=== PATIENT | female | born 1940 | race Caucasian/White ===

== ENCOUNTER 2025-01-01 11:59 | Inpatient (IN) ==
[2025-01-01] MEDS: HYDROmorphone 0.5 MG/0.5 ML SYRINGE IV PRN ×2 (12:25→19:56)
[2025-01-01] MEDS: ONDANSETRON 4 MG/2 ML VIAL IV ONE (12:25)
[2025-01-01 13:21] LABS: Basophils # (Auto) 0.07 K/mcL (0.00-0.30); Basophils % (Auto) 0.9 % (0.0-2.0); Eosinophils # (Auto) 0.23 K/mcL (0.00-0.70); Eosinophils % (Auto) 3.0 % (0.0-7.0); Hematocrit 34.3 % (34.1-44.9); Hemoglobin 11.5 g/dL (11.2-15.7); Lymphocytes # (Auto) 1.80 K/mcL (1.50-4.80); Lymphocytes % (Auto) 23.6 % (15.5-49.0); Mean Corpuscular HGB Conc 33.5 g/dL (31.0-36.0); Monocytes # (Auto) 0.90 K/mcL (0.10-0.90); Monocytes % (Auto) 11.8 % (1.0-12.0); Neutrophils % (Auto) 60.3 % (38.0-78.0); Platelet Count 375 K/mcL (140-440); RBC 3.65 M/mcL (3.59-5.38); WBC 7.6 K/mcL (4.5-11.0)
[2025-01-01 13:47] LABS: ALT/SGPT 13 U/L (<40); AST/SGOT 18 U/L (<32); Albumin 3.6 gm/dL (3.2-5.2); Albumin/Globulin Ratio 1.5 (1.0-2.3); Alkaline Phosphatase 86 U/L (39-117); Anion Gap 7.0 (8.0-16.0); Bilirubin,Total 0.3 mg/dL (0.1-1.0); Blood Urea Nitrogen 11 mg/dL (8-23); Calcium 8.9 mg/dL (8.6-10.4); Carbon Dioxide 28 mmol/L (22-30); Chloride 101 mmol/L (96-108); Globulin 2.4 gm/dL (2.2-3.7); Glucose 87 mg/dL (70-105); Potassium 4.0 mmol/L (3.3-5.1); Sodium 136 mmol/L (133-145)
[2025-01-01 14:19] LABS: INR 0.9 (0.9-1.1); Prothrombin Time 13.3 sec (11.9-14.5)
[2025-01-01] MEDS: ACETAMINOPHEN 1,000 MG/100 ML BAG IV PRN (15:46)
[2025-01-01] MEDS ORDERED: LIDOCAINE 2% PF 5 ML VIAL ONE (15:57)
[2025-01-01] MEDS ORDERED: FAMOTIDINE/PF 20 MG/2 ML VIAL IV ONE (15:57)
[2025-01-01] MEDS ORDERED: PROPOFOL 200 MG/20 ML VIAL IV ONE (15:57)
[2025-01-01] MEDS ORDERED: ACETAMINOPHEN 325 MG TABLET PO PRN (16:19)
[2025-01-01] MEDS: LACTATED RINGERS 1,000 ML IV SCH ×2 (17:35→19:43)
[2025-01-01] MEDS: 0.9 % SODIUM CHLORIDE 10 ML SYRINGE IV SCH (17:36)
[2025-01-01] MEDS ORDERED: ceFAZolin 2 GM in DEXTROSE 5% IN WATER 50 ML IV SCH (18:15)
[2025-01-01] MEDS: CLINDAMYCIN IN 0.9 % SOD CHLOR 900 MG/50 ML BAG IV SCH (18:23)
[2025-01-01] MEDS ORDERED: BUPIVACAINE LIPOSOMAL 1.3% 10 ML VIAL IJ ONE (18:45)
[2025-01-01] MEDS ORDERED: BUPIVACAINE PF 0.5% 10 ML VIAL ONE (18:46)
[2025-01-01] MEDS ORDERED: fentaNYL 100 MCG/2 ML VIAL IV PRN (18:56)
[2025-01-01] MEDS ORDERED: HYDROmorphone 0.5 MG/0.5 ML SYRINGE IV PRN (18:56)
[2025-01-01] MEDS ORDERED: IPRATROPIUM/ALBUTEROL 3 ML AMPUL.NEB NEB PRN (18:56)
[2025-01-01] MEDS ORDERED: ONDANSETRON 4 MG ODT TABLET SL PRN (19:01)
[2025-01-01] MEDS ORDERED: FLEETS ADULT 1 DOSE ENEMA PR PRN (19:01)
[2025-01-01] MEDS ORDERED: POLYETHYLENE GLYCOL 3350 17 GM PACKET PO PRN (19:01)
[2025-01-01] MEDS ORDERED: BISACODYL 10 MG SUPP.RECT PR PRN (19:01)
[2025-01-01] MEDS ORDERED: LABETALOL HCL 20 MG/4 ML VIAL IV ONE (19:14)
[2025-01-01] MEDS: 0.45 % SODIUM CHLORIDE 1,000 ML IV SCH (19:48)
[2025-01-01] MEDS: SENNOSIDES 1 TABLET PO SCH (19:56)
[2025-01-01] MEDS: DOCUSATE SODIUM 100 MG CAPSULE PO SCH (19:56)
[2025-01-01] MEDS: ASPIRIN 81 MG TAB.CHEW PO SCH (20:04)
[2025-01-01] MEDS ORDERED: SENNOSIDES 1 TABLET PO SCH (21:00)
[2025-01-01] MEDS ORDERED: DOCUSATE SODIUM 100 MG CAPSULE PO SCH (21:00)
[2025-01-01] MEDS: MELATONIN 3 MG TABLET PO PRN (22:42)
[2025-01-02] MEDS: ACETAMINOPHEN 650 MG/65 ML BAG IV PRN (07:11)
[2025-01-02 07:19] LABS: Basophils # (Auto) 0.01 K/mcL (0.00-0.30); Basophils % (Auto) 0.2 % (0.0-2.0); Eosinophils # (Auto) 0 K/mcL (0.00-0.70); Eosinophils % (Auto) 0 % (0.0-7.0); Hematocrit 34.1 % (34.1-44.9); Hemoglobin 11.2 g/dL (11.2-15.7); Lymphocytes # (Auto) 0.58 K/mcL (1.50-4.80); Lymphocytes % (Auto) 9.1 % (15.5-49.0); Mean Corpuscular HGB Conc 32.8 g/dL (31.0-36.0); Monocytes # (Auto) 0.47 K/mcL (0.10-0.90); Monocytes % (Auto) 7.4 % (1.0-12.0); Neutrophils % (Auto) 83.0 % (38.0-78.0); Platelet Count 389 K/mcL (140-440); RBC 3.57 M/mcL (3.59-5.38); WBC 6.4 K/mcL (4.5-11.0)
[2025-01-02 07:40] LABS: Phosphorous 3.8 mg/dL (2.5-4.5)
[2025-01-02 08:10] LABS: Anion Gap 8.0 (8.0-16.0); Blood Urea Nitrogen 12 mg/dL (8-23); Calcium 8.7 mg/dL (8.6-10.4); Carbon Dioxide 26 mmol/L (22-30); Chloride 99 mmol/L (96-108); Glucose 127 mg/dL (70-105); Potassium 4.7 mmol/L (3.3-5.1); Sodium 133 mmol/L (133-145)
[2025-01-02] MEDS: POLYETHYLENE GLYCOL 3350 17 GM PACKET PO SCH (09:43)
[2025-01-02] MEDS: HEPARIN 5,000 UNIT/ML VIAL SQ SCH (09:43)
[2025-01-02] MEDS ORDERED: FUROSEMIDE 20 MG TABLET PO PRN (16:11)
[2025-01-02] MEDS: PRAMIPEXOLE 0.25 MG TABLET PO SCH (20:07)
[2025-01-03] MEDS: BENZOCAINE/MENTHOL 1 LOZENGE PO PRN (03:01)
[2025-01-03 06:56] LABS: Anion Gap 7.0 (8.0-16.0); Blood Urea Nitrogen 14 mg/dL (8-23); Calcium 8.9 mg/dL (8.6-10.4); Carbon Dioxide 27 mmol/L (22-30); Chloride 101 mmol/L (96-108); Glucose 89 mg/dL (70-105); Potassium 4.6 mmol/L (3.3-5.1); Sodium 135 mmol/L (133-145)
[2025-01-03 06:57] LABS: Basophils # (Auto) 0.05 K/mcL (0.00-0.30); Basophils % (Auto) 0.6 % (0.0-2.0); Eosinophils # (Auto) 0.51 K/mcL (0.00-0.70); Eosinophils % (Auto) 6.0 % (0.0-7.0); Hematocrit 32.8 % (34.1-44.9); Hemoglobin 10.9 g/dL (11.2-15.7); Lymphocytes # (Auto) 2.63 K/mcL (1.50-4.80); Lymphocytes % (Auto) 31.0 % (15.5-49.0); Mean Corpuscular HGB Conc 33.2 g/dL (31.0-36.0); Monocytes # (Auto) 1.01 K/mcL (0.10-0.90); Monocytes % (Auto) 11.9 % (1.0-12.0); Neutrophils % (Auto) 50.3 % (38.0-78.0); Platelet Count 335 K/mcL (140-440); RBC 3.43 M/mcL (3.59-5.38); WBC 8.5 K/mcL (4.5-11.0)
[2025-01-03] MEDS: LEVOTHYROXINE 88 MCG TABLET PO SCH (07:34)
[2025-01-03] MEDS: SERTRALINE 100 MG TABLET PO SCH (10:02)
[2025-01-03] MEDS: METHOCARBAMOL 750 MG TABLET PO PRN (17:06)
[2025-01-04] MEDS: MAG HYDROX/AL HYDROX/SIMETH 30 ML ORAL.SUSP PO PRN (00:03)
[2025-01-04] MEDS: ONDANSETRON 4 MG/2 ML VIAL IV PRN (05:02)
[2025-01-04 06:23] LABS: Basophils # (Auto) 0.06 K/mcL (0.00-0.30); Basophils % (Auto) 0.7 % (0.0-2.0); Eosinophils # (Auto) 0.79 K/mcL (0.00-0.70); Eosinophils % (Auto) 9.3 % (0.0-7.0); Hematocrit 33.5 % (34.1-44.9); Hemoglobin 11.1 g/dL (11.2-15.7); Lymphocytes # (Auto) 1.97 K/mcL (1.50-4.80); Lymphocytes % (Auto) 23.3 % (15.5-49.0); Mean Corpuscular HGB Conc 33.1 g/dL (31.0-36.0); Monocytes # (Auto) 1.15 K/mcL (0.10-0.90); Monocytes % (Auto) 13.6 % (1.0-12.0); Neutrophils % (Auto) 53.0 % (38.0-78.0); Platelet Count 348 K/mcL (140-440); RBC 3.53 M/mcL (3.59-5.38); WBC 8.5 K/mcL (4.5-11.0)
[2025-01-04 06:36] LABS: Phosphorous 3.3 mg/dL (2.5-4.5)
[2025-01-04 06:37] LABS: Anion Gap 7.0 (8.0-16.0); Blood Urea Nitrogen 10 mg/dL (8-23); Calcium 8.8 mg/dL (8.6-10.4); Carbon Dioxide 28 mmol/L (22-30); Chloride 99 mmol/L (96-108); Glucose 97 mg/dL (70-105); Potassium 4.2 mmol/L (3.3-5.1); Sodium 134 mmol/L (133-145)
[2025-01-04] MEDS: MAGNESIUM HYDROXIDE 30 ML ORAL.SUSP PO PRN (08:38)
[2025-01-04 11:32] VITALS: TEMP 97.1; O2SAT 100
== END 2025-01-04 12:12 | DRG 482 ==
LOC: ED 11:59 → MEDSUR 16:10
PROVIDERS: ADMIT Student in an Organized Health Care Education/Training Program; ATTEND Student in an Organized Health Care Education/Training Program